=== PATIENT | female | born 1955 | race Caucasian/White ===

== ENCOUNTER 2019-10-29 12:42 | Inpatient (IN) | payer OTHER ==
[~2019-10-29] VITALS: Ht 154.9 cm; Wt 114.3 kg
[2019-10-29] MEDS ORDERED: METF-815 PO (12:48)
[2019-10-29] MEDS ORDERED: GLIP10TA10 PO (12:48)
[2019-10-29 13:53] LABS: BASOPHILS % 0.6 % (0.0-2.0); EOSINOPHILS % 1.7 % (0.0-5.0); HEMATOCRIT. 36.7 % (36.0-48.0); LYMPHOCYTES % 17.4 % (20.0-50.0); MEAN CORPUSCULAR HEMOGLOBIN 26.6 pg (28.0-32.0); MEAN PLATELET VOLUME 9.1 fl (7.4-10.4); MONOCYTES % 6.6 % (2.0-8.0); NEUTROPHILS % 73.7 % (40.0-76.0); PLATELET 181 x1000/uL (130-400); RED BLOOD CELL COUNT 4.53 mill/uL (4.2-5.4); RED CELL DISTRIBUTION WIDTH 15.4 % (11.6-14.6)
[2019-10-29 13:58] LABS: CHLORIDE 108 mEq/L (98-107)
[2019-10-29 13:59] LABS: CLARITY URINE CLEAR (CLEAR); COLOR URINE YELLOW (YELLOW); INR 1.1; KETONES URINE NEGATIVE (NEGATIVE); LEUKOCYTE ESTERASE URINE NEGATIVE (NEGATIVE); NITRITE URINE NEGATIVE (NEGATIVE); OCCULT BLOOD URINE NEGATIVE (NEGATIVE); PROTEIN URINE NEGATIVE (NEGATIVE); PROTHROMBIN TIME 11.1 sec (9.6-11.0); SPECIFIC GRAVITY URINE 1.006 (1.005-1.030); UROBILINOGEN URINE 0.2 E.U./dL (0.2-1.0)
[2019-10-29 14:02] LABS: ETHANOL BLOOD < 10 mg/dL
[2019-10-29 14:05] LABS: LDL CHOLESTEROL 74 mg/dL (5-100)
[2019-10-29 14:12] LABS: *AMPHETAMINES SCREEN URINE NEGATIVE (NEGATIVE); *BARBITURATES SCREEN URINE NEGATIVE (NEGATIVE); *BENZODIAZEPINES SCREEN URINE NEGATIVE (NEGATIVE); *COCAINE SCREEN URINE NEGATIVE (NEGATIVE)
[2019-10-29 14:13] LABS: CANNABINOID URINE SCREEN NEGATIVE (NEGATIVE); METHADONE URINE SCREEN NEGATIVE (NEGATIVE); OPIATES URINE SCREEN NEGATIVE (NEGATIVE); PHENCYCLIDINE URINE SCREEN NEGATIVE (NEGATIVE)
[2019-10-29] MEDS ORDERED: AMLODIPINE 5MG TABLET PO SCH ×2 (15:30→21:56)
[2019-10-29] MEDS: ASPIRIN 81MG EC TABLET PO SCH (17:02)
[2019-10-29] MEDS ORDERED: IOHEXOL-350 100 ML BOTTLE ONE (17:41)
[2019-10-29] MEDS ORDERED: CLONIDINE 0.1MG TABLET PO PRN (19:39)
[2019-10-29] MEDS ORDERED: ONDANSETRON HCL 4MG/2ML INJ IV PRN (19:39)
[2019-10-29] MEDS ORDERED: ACETAMINOPHEN 325MG TABLET PO PRN (19:40)
[2019-10-29] MEDS ORDERED: IPRATROPIUM/ALBUTEROL 0.5-3(2.5)MG/3ML NEB HHN PRN (19:40)
[2019-10-29 21:56] VITALS: BP 143/94
[2019-10-29] MEDS ORDERED: DEXTROSE 50% WATER 50ML SYRINGE IV PRN (21:56)
[2019-10-29] MEDS ORDERED: FUROSEMIDE 20MG/2ML VIAL IVP NR (21:56)
[2019-10-29] MEDS ORDERED: LOSARTAN POTASSIUM 50 MG TABLET PO SCH (21:57)
[2019-10-29] MEDS ORDERED: LISI10TA5 MT (22:20)
[2019-10-30] VITALS (9 sets, daily range): BP systolic 123–168; BP diastolic 75–103
[2019-10-30 00:25] LABS: HEMOGLOBIN 11.4 g/dL (12.0-16.0); MEAN CORPUSCULAR HEMOGLOBIN 26.5 pg (28.0-32.0); MEAN CORPUSCULAR VOLUME 80.9 fL (81.0-99.0); PLATELET 173 x1000/uL (130-400); RED BLOOD CELL COUNT 4.32 mill/uL (4.2-5.4); RED CELL DISTRIBUTION WIDTH 15.6 % (11.6-14.6)
[2019-10-30] MEDS ORDERED: ASPIRIN 300MG SUPP PR NR (00:30)
[2019-10-30] MEDS ORDERED: DEXT 5%/0.45% NACL KCL 40MEQ/L 1,000 ML IV SCH (01:00)
[2019-10-30] MEDS ORDERED: DEXT 5%/0.45% NACL 500ML 500 ML IV ONE (01:30)
[2019-10-30] MEDS: DEXT 5%/0.45% NACL KCL 20MEQ/L 1,000 ML IV SCH ×2 (04:26→18:26)
[2019-10-30] MEDS: BLOOD SUGAR DIAGNOSTIC STRIP TEST SCH ×3 (06:50→17:05)
[2019-10-30] MEDS: INSULIN LISPRO 100 UNITS/ML SUBCUT SCH ×3 (07:20→17:05)
[2019-10-30 07:40] LABS: BASOPHILS % 0.6 % (0.0-2.0); EOSINOPHILS % 1.4 % (0.0-5.0); HEMATOCRIT. 34.6 % (36.0-48.0); HEMOGLOBIN. 11.4 g/dL (12.0-16.0); LYMPHOCYTES % 15.5 % (20.0-50.0); MEAN CORPUSCULAR HEMOGLOBIN 26.5 pg (28.0-32.0); MEAN CORPUSCULAR VOLUME 80.5 fL (81.0-99.0); MEAN PLATELET VOLUME 9.1 fl (7.4-10.4); MONOCYTES % 6.7 % (2.0-8.0); NEUTROPHILS % 75.8 % (40.0-76.0); PLATELET 171 x1000/uL (130-400); RED BLOOD CELL COUNT 4.29 mill/uL (4.2-5.4); RED CELL DISTRIBUTION WIDTH 15.3 % (11.6-14.6)
[2019-10-30 08:27] LABS: CHLORIDE 105 mEq/L (98-107)
[2019-10-30] MEDS: ASPIRIN 81MG EC TABLET PO SCH (08:32)
[2019-10-30 08:38] LABS: LDL CHOLESTEROL 67 mg/dL (5-100)
[2019-10-30 08:40] LABS: HDL CHOLESTEROL 42 mg/dL (40-59)
[2019-10-30] MEDS ORDERED: ENOXAPARIN 30MG/0.3ML SYR SUBCUT SCH (09:00)
[2019-10-30] MEDS ORDERED: HYDRALAZINE 20MG/ML VIAL IV PRN (11:30)
[2019-10-30] MEDS ORDERED: ENOXAPARIN 80MG/0.8ML SYR SUBCUT NR (11:45)
[2019-10-30] MEDS ORDERED: POTASSIUM CHLORIDE INJ 40 MEQ in DEXT 5% WATER 250 ML IV NR (12:00)
[2019-10-30] MEDS ORDERED: MAGNESIUM 2 G PREMIX 50 ML IV NR (12:00)
[2019-10-30] MEDS: ACETAMINOPHEN 650MG SUPP PR PRN ×2 (12:50→18:29)
[2019-10-30] MEDS ORDERED: ASPIRIN 300MG SUPP PR SCH (13:00)
[2019-10-30] MEDS ORDERED: ENOXAPARIN 120MG/0.8ML SYR SUBCUT SCH (21:00)
[2019-10-30] MEDS ORDERED: ATORVASTATIN CALCIUM 40MG TABLET PO SCH (21:00)
== END 2019-10-30 20:59 | disposition short-term general hospital (02) | DRG 64 ==
LOC: ER 12:42 → 3WST 14:38 → EDBEDREQTM 14:40 → EDBEDREQ 14:40 → ENRESERV 19:40
PROVIDERS: ADMIT Internal Medicine; ATTEND Internal Medicine
DX: I63.511 Cerebral infarction due to unspecified occlusion or stenosis of right middle cerebral artery (principal); I21.4 Non-ST elevation (NSTEMI) myocardial infarction; G93.40 Encephalopathy, unspecified; Z68.42 Body mass index [BMI] 45.0-49.9, adult; D64.9 Anemia, unspecified; E11.9 Type 2 diabetes mellitus without complications; I16.0 Hypertensive urgency; I11.9 Hypertensive heart disease without heart failure; J45.909 Unspecified asthma, uncomplicated; I20.9 Angina pectoris, unspecified; Z60.2 Problems related to living alone; I49.3 Ventricular premature depolarization; I49.1 Atrial premature depolarization; R47.1 Dysarthria and anarthria; G31.9 Degenerative disease of nervous system, unspecified; E66.01 Morbid (severe) obesity due to excess calories; R29.810 Facial weakness; Z87.891 Personal history of nicotine dependence; Z79.899 Other long term (current) drug therapy; Z79.84 Long term (current) use of oral hypoglycemic drugs; Z56.0 Unemployment, unspecified
CPT/HCPCS: 36415; 70496; 70498; 70551; 71045; 80048; 80053; 80061; 80305; 80320; 81003; 82962; 83721; 83735; 83880; 84484; 85025; 85027; 92610; 93005; 93306; 93880; 93970; 96365; 96367; 96372; 96375; 97163; 99291; J1650; J1940; J3475; J3480; J7060; Q9967; G0480